=== PATIENT | male | born 1985 | race African-American/Black ===

== ENCOUNTER 2019-06-29 08:28 | Inpatient (IN) ==
--- NOTE | 2019-06-29 09:10 | Diag Imaging Result Doc PS360 ---
EXAM: CHEST-1 VIEW 06/29/2019 HISTORY: bilat LE edema TECHNIQUE: AP portable upright chest at 0854 COMMENT: The costophrenic angles are not included on the film. There is some questionable atelectasis over the left base. Otherwise lungs are clear and the heart and primary vascularity are within normal limits. IMPRESSION: Possible left lower lobe atelectasis. Electronically signed by Harry Valdivia 06/29/2019 9:07 AM
--- NOTE | 2019-06-29 09:12 | PROVIDER DOCUMENTATION ---
HPI-General Adult - General Chief Complaint: Edema Stated Complaint: fluid build up Time Seen by Provider: 06/29/19 08:43 Source: patient, old records Allergies/Adverse Reactions: Patient Allergies Allergy/AdvReac Type Severity Reaction Status Date / Time No Known Allergies Allergy Verified 06/29/19 08:59 Home Medications: Home Medication List Medication Instructions Recorded Confirmed Last Taken Type Hydrochlorothiazide 1 tab PO DAILY 06/29/19 06/29/19 06/28/19 History Losartan [Cozaar] 100 mg PO DAILY 06/29/19 06/29/19 06/28/19 History Lovastatin 1 tab PO HS 06/29/19 06/29/19 Unknown History - History of Present Illness -Gen Adult Nature of Presenting Problems: pt w. hx of HBP on Losartan, lipid disorder on (? statin), notes 59 lb weight gain in past month. he denies known OHD/liver/kidney disease. his urine volume is normal per his judgement. he has occas orthopnea ("1-2 X monthly) but denies PND and generally sleeps on 2 pillows. he denies known venous insuff / DVT. he weights 378 today. Review of Systems - Adult - REVIEW OF SYSTEMS - ADULT Constitutional: reports: no symptoms reported Eyes: reports: no symptoms reported Ears, Nose, Mouth & Throat: reports: no symptoms reported Cardiovascular: reports: see HPI, edema Respiratory: reports: no symptoms reported Gastrointestinal: reports: no symptoms reported Genitourinary: reports: no symptoms reported Musculoskeletal: reports: see HPI Integumentary: reports: no symptoms reported Neurological: reports: no symptoms reported Psychiatric: reports: no symptoms reported Endocrine: reports: no symptoms reported Hematologic/Lymphatic: reports: no symptoms reported Allergic/Immunologic: reports: no symptoms reported All Other Systems: Reviewed and Negative Past History - Adult - PAST MEDICAL HISTORY-ADULT Review of Records: reports: Old Records Reviewed Physical Exam-General - PHYSICAL EXAM-ADULT Initial Vital Signs Reviewed: Yes - CONSTITUTIONAL General Appearance: appears well, alert, no apparent distress - EYES Eyes: pink conjunctivae. negative: scleral icterus - HEAD, EARS, NOSE, MOUTH & THROAT HENMT: normocephalic/atraumatic, moist mucous membranes - NECK Neck: full range of motion, other (no NVD). negative: lymphadenopathy, trachial deviation, thyromegaly - RESPIRATORY Respiratory: lungs clear - CARDIOVASCULAR Cardiovascular: regular rate, rhythm - GASTROINTESTINAL (ABDOMEN) Abdominal Exam: normal bowel sounds, non tender, soft, other (massively obese) - LYMPHATIC Lymphatic: no adenopathy - MUSCULOSKELETAL Back Exam: no CVA tenderness Extremity: normal range of motion, swelling. 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 as tested, grossly normal, no motor/sensory deficits - PSYCHIATRIC Psych/Mental Status: normal mood/affect, normal thought content Progress - PLAN OF CARE/RESULTS Progress/Plan/Lab Results: Vital Signs - 8 hr 06/29/19 08:36 Temperature 98.9 F Pulse Rate 95 H Respiratory Rate 18 Blood Pressure 136/88 O2 Sat by Pulse Oximetry 99 Orders Category Date Time Status Nursing- Obtain EKG ONCE Care 06/29/19 08:44 Active CHEST-1 VIEW [RAD] Stat Exams 06/29/19 08:44 Taken CBC WITH DIFF [HEME] Stat Lab 06/29/19 08:44 Uncollected COMPREHENSIVE METABOLIC PANEL [CHEM] Stat Lab 06/29/19 08:44 Uncollected D-DIMER [COAG] Stat Lab 06/29/19 08:46 Uncollected PRO B-NATRIURETIC PEPTIDE Stat Lab 06/29/19 08:44 Uncollected URINALYSIS W/POSS RFLX CULT [URINALYSIS] Stat Lab 06/29/19 08:44 Uncollected EKG [EKG] Stat Ther 06/29/19 08:44 Ordered Result Diagrams: 06/29/19 09:23 06/29/19 09:23 - REASSESSMENT Reassessment #1 Time Reassessed: 11:12 Status: unchanged - EKG 1 Time of EKG reading by physician:: 09:10 EKG Interpretation (*Must complete 3 of following elements*): Normal Rate: 93 Rhythm: NSR [place]: normal QRS: normal ST Wave: normal Departure - Departure Date of Disposition Decision: 06/29/19 Time of Disposition Decision: 11:40 DIAGNOSIS: ALICE (acute kidney injury), Anasarca associated with disorder of kidney Disposition: ADMITTED INPATIENT 09 Certified Medical Emergency: Emergent Condition: Stable - Critical Care Note This patient required my direct & personal management of CC.: No Attestation - Physician/ NAVNEET Attestation The physician spent face to face time with patient:: Yes Advanced Practice Provider documentation review:: Supervising physician onsite and consulted in the evaluation and care of this patient. The physician did have a face to face encounter with the patient.
[2019-06-29 09:32] LABS: BASO# 0.02 X1000 (0.0-0.2); BASO% 0.3 % (0.0-0.8); EOS# 0.16 X1000 (0.0-0.7); EOS% 2.3 % (0.0-10.0); HEMATOCRIT 41.4 % (42.0-52.0); HEMOGLOBIN 13.4 g/dL (14.0-18.0); LYMPH# 1.48 X1000 (1.2-3.4); LYMPH% 20.8 % (20.5-51.1); MCH 28.4 PG (27-31); MCHC 32.4 g/dL (33-37); MCV 87.7 FL (81-99); MONO# 0.49 X1000 (0.11-0.59); MONO% 6.9 % (1.7-9.3); MPV 9.7 FL (7.4-10.4); NEUT# 4.95 X1000 (1.4-6.5); NEUT% 69.7 % (42.2-75.2); PLT 288 X1000 (130-400); RBC 4.72 XMIL (4.7-6.1); RDW 13.4 % (11.5-14.5)
--- NOTE | 2019-06-29 10:00 | EKG Report ---
Test Performed on : 06/29/2019 09:08:51 AM Test Reason : edema Blood Pressure : / mmHG Vent. Rate : 093 BPM Atrial Rate : 093 BPM P-R Int : 134 ms QRS Dur : 090 ms QT Int : 352 ms P-R-T Axes : 029 011 005 degrees QTc Int : 437 ms Normal sinus rhythm. T wave abnormality, consider lateral ischemia Abnormal ECG No previous ECGs available Unconfirmed Result
[2019-06-29 10:01] LABS: AGAP 8; ALB/GLOB RATIO 0.6; ALBUMIN 1.8 g/dL (3.5-5.0); ALKALINE PHOSPHATASE 34 U/L (32-122); BUN 19 mg/dL (8-22); CALCIUM 7.6 mg/dL (8.8-10.2); CHLORIDE 107 mmol/L (98-107); COSMO 284; CREATININE 3.4 mg/dL (0.7-1.2); ESTIMATED GFR 25; GLUCOSE 100 mg/dL (70-104); GOT 17 U/L (10-34); GPT 10 U/L (10-44); POTASSIUM 3.5 mmol/L (3.5-5.1); SODIUM 141 mmol/L (136-145); TCO2 26 mmol/L (25-35); TOTAL PROTEIN 4.6 g/dL (6.3-8.3)
[2019-06-29 10:03] LABS: TOTAL BILIRUBIN < 0.15 mg/dL (0.20-1.00)
[2019-06-29 12:04] LABS: URINE SOURCE CLEAN CATCH
[2019-06-29] MEDS ORDERED: ZOFRAN IV PRN (12:05)
[2019-06-29] MEDS ORDERED: TYLENOL PO PRN (12:05)
[2019-06-29 12:11] LABS: BILIRUBIN URINE NEGATIVE (NEGATIVE); BLOOD URINE MODERATE (NEGATIVE); COLOR YELLOW; GLUCOSE URINE TRACE mg/dL (NEGATIVE); KETONE URINE NEGATIVE (NEGATIVE); LEUKOCYTES URINE NEGATIVE (NEGATIVE); NITRITE URINE NEGATIVE (NEGATIVE); PH URINE 7.5; PROTEIN URINE >600 mg/dL (NEGATIVE); SP GRAVITY URINE 1.019; TURBIDITY URINE CLEAR (CLEAR); UR EPITHELIAL CELLS <10 /HPF (<10); URINE BACTERIA NEGATIVE /HPF; URINE RBC 20-40 /HPF (<10); UROBILINOGEN URINE NORMAL (NORMAL)
[2019-06-29 13:18] LABS: UR AMPHETAMINES QUAL NONE DETECTED (NONE DETECT); UR BARBITUATES QUAL NONE DETECTED (NONE DETECT); UR BENZODIAZEPIN QUAL NONE DETECTED (NONE DETECT); UR CANNABINOIDS QUAL NONE DETECTED (NONE DETECT); UR COCAINE QUAL NONE DETECTED (NONE DETECT); UR METHADONE QUAL NONE DETECTED (NONE DETECT); UR OPIATES QUAL NONE DETECTED (NONE DETECT); UR OXYCODONE QUAL NONE DETECTED (NONE DETECT); UR PCP QUAL NONE DETECTED (NONE DETECT)
[2019-06-29 13:19] LABS: UR CREAT RANDOM 103.3 mg/dL (14-26)
--- NOTE | 2019-06-29 13:57 | HISTORY AND PHYSICAL ---
PRIMARY CARE PROVIDER: Dr. Luna. CHIEF COMPLAINT: Swelling in the abdomen and in the lower extremities. HISTORY OF PRESENT ILLNESS: Mr. Mateus Mitchell is a 34-year-old male with a medical history of morbid obesity. BMI is over 40. He also has a history of hypertension, hyperlipidemia. States for at least 1 month now he has had more swelling in the abdomen and the lower extremities that is pitting. He admits to having at least a 5+ pound weight gain in the last 2 weeks. He 2 weeks ago went to his primary care provider, Dr. Luna, who increased his hydrochlorothiazide from 12.5 to 25 mg and his losartan from 25 to 100 mg and since that time he has had more swelling. He denies any changes in his urinary output and states that the swelling is so much more in his abdomen that he is actually having tenderness around the bellybutton area. He does have pretty significant anasarca at least 4+ pitting edema in the abdomen and legs. He has a lab value of 3.4 on his creatinine. However, the BUN is stable and it looks like in 2016 he had a normal creatinine, so he definitely has acute kidney injury. He has a significant amount of protein in the urine. He may have possible nephrotic syndrome. He also stated that yesterday he had so much swelling he actually had to cut his pants off. FAMILY HISTORY: Congestive heart failure so we are going to rule out congestive heart failure along with acute kidney injury that he has. PAST MEDICAL HISTORY: 1. Hypertension. 2. Hyperlipidemia. 3. Morbid obesity, current BMI is 47.2. SURGICAL HISTORY: None. SOCIAL HISTORY: Quit smoking in 2015. Started at the age of 20 and would smoke 3 Black and Mild's today. Denies alcohol or illicit drug use. 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 SOCIAL HISTORY: Not ; no children. FAMILY HISTORY: Mother had congestive heart failure and 20 years ago. Father unknown. ALLERGIES: No known drug allergies. HOME MEDICATIONS: 1. Cozaar/losartan 100 mg p.o. daily. 2. Hydrochlorothiazide 25 mg p.o. daily. 3. Lovastatin 40 mg p.o. nightly. REVIEW OF SYSTEMS: Fourteen point review of systems are complete and all were negative except for those mentioned above HPI. He denies chest pain, shortness of breath. He denies fever, cough. PHYSICAL EXAMINATION: VITAL SIGNS: Temperature 98.9 degrees, heart rate 78, respiratory rate 16, blood pressure 150/83, O2 saturation 99% on room air. GENERAL: Mr. Mateus Mitchell is a 34-year-old male. He is in no acute distress. He is able to answer questions appropriately. HEENT: Atraumatic, normocephalic. Pupils equal, round, reactive to light. Extraocular movements intact. Mucous membranes moist. NECK: Trachea midline. CARDIOVASCULAR: S1, S2. Regular rate and rhythm. No rubs, gallops, murmurs, 4+ lower extremity pitting edema, 4+ abdominal pitting edema, +2 dorsalis and radial pulses. Unable to assess for JVD given body habitus. Negative for carotid bruits. PULMONARY: Clear to auscultation, bilateral breath sounds. No accessory muscle use or work of breathing noted. GASTROINTESTINAL: Abdomen soft, nontender, distended, but mostly distended because of the fluid buildup. Positive bowel sounds x4. EXTREMITIES: Moves all extremities equally with full range of motion. NEUROLOGIC: A and O x3. Follows commands. Sensory is intact. SKIN: Warm, dry, intact. LABORATORY DATA: White blood cells 7000, hemoglobin 13, hematocrit 41, platelet count 288,000. D- dimer 0.52. Sodium 141, potassium 3.5, BUN 19, creatinine 3.4, glucose 100, calcium 7.6, bilirubin less than 0.15, AST 17, ALT 10, proBNP 33. Albumin is 1.8. Urine protein greater than 600. Urine blood moderate, urine white blood cells 10 to 20, urine red blood cells 20 to 40, but there is negative leukocytes and negative bacteria. Micro: Urine culture pending. IMAGING: Chest x-ray, maybe some slight left lower lobe atelectasis. EKG: Normal sinus rhythm, rate of 93, QTc 437. ASSESSMENT AND PLAN: 1. Anasarca. Could be related to a nephrotic syndrome. He has protein in the urine. He has elevated creatinine. Could also be heart related. We have got to rule out congestive heart failure as well. 2. Acute kidney injury, possible nephrotic syndrome. He has been on losartan and hydrochlorothiazide, which will stop. He has low albumin, elevated protein in the urine. Elevated creatinine so he has significant edema everywhere. 3. Hypertension. We will hold off on his hydrochlorothiazide and his losartan for now, we may have to add something if it goes up too much higher. He is at 150 right now, systolic. 4. Hyperlipidemia. We will resume his statin. 5. Deep venous thrombosis prophylaxis, Lovenox. Dictated by ABRAHAM Atkins for Ryan Shipman MD cc: ABRAHAM Atkins MD
--- NOTE | 2019-06-29 16:19 | Diag Imaging Result Doc PS360 ---
EXAM: US RENAL 2 (RETROPER) COMPLETE 06/29/2019 HISTORY: debra; anasarca TECHNIQUE: Renal ultrasound COMMENT: The study is suboptimal technically due to the patient's body habitus. The urinary bladder is unremarkable in appearance. There is no evidence of hydronephrosis. The right kidney is 12.5 x 5.5 x 5.4 cm the left is 14.6 x 6.5 x 5.9 cm. IMPRESSION: No evidence of obstructive uropathy. Electronically signed by Harry Valdivia 06/29/2019 4:16 PM
--- NOTE | 2019-06-29 16:26 | ECHO REPORT ---
ORDER DATE: 06/29/2019 INTERPRETING PHYSICIAN: Dr. Zepeda REQUESTING PHYSICIAN: Hospitalist Service CLINICAL INDICATIONS: This is a 34-year-old male with shortness of breath, swelling. M-MODE MEASUREMENTS: Right ventricle: cm. Left ventricle end diastole: 4.1 cm. Left ventricle end systole: 3.1 cm. Posterior wall: 1.2 cm. Interventricular septum: 1.2 cm. Left atrium: 3.9 cm. Aortic root: 3.0 cm. SUMMARY OF 2-DIMENSIONAL IMAGIN. Left ventricular function appears to be grossly normal. Ejection fraction estimated at 55% to 60%. 2. Optison was added to improve visualization of endocardium. 3. Mitral valve looks normal. Color flow mapping is unremarkable. 4. Pulse wave Doppler of mitral inflow is normal. 5. Tissue Doppler of septal and lateral mitral annulus averages 7 cm. 6. Pulmonic valve is grossly normal. 7. Tricuspid valve is unremarkable. 8. Aortic valve looks normal. Color flow mapping is unremarkable. 9. There is no pericardial effusion, mas or thrombus. 10.Right sided chambers were suboptimally visualized. 11.There is no evidence of masses or thrombus. Clinical correlation is recommended. cc: MD Natividad Lynch CRNP
[2019-06-29] MEDS ORDERED: ALBUMIN 25% IV ONE (17:53)
--- NOTE | 2019-06-29 18:45 | HISTORY AND PHYSICAL ---
ADDENDUM: HISTORY OF PRESENT ILLNESS: This is a 34-year-old male who is complaining of increasing swelling and possibly a little bit of shortness of breath, but mostly swelling of abdomen and lower extremities for the last month. He has had a 5-pound weight gain in the last couple weeks. PCP, Dr. Luna, increased his hydrochlorothiazide to 25 and went from 25 to 100 on the losartan. His urine output has not changed, but he does describe frothy urine, and that is also for about a month. Workup in the ER today showed a 3.4 creatinine. It was completely isolated. Potassium is okay. Protein if anything is low. Albumin very low. Urine protein though greater than 600. PHYSICAL EXAMINATION: On exam he has got at least 2 to 3+ pitting edema up to knees. I did not appreciate rales. He has got edema in his abdominal wall. He even has maybe a little bit of periorbital edema or at least a little bit on the left side. PROBLEM LIST: Anasarca in the setting of hypoalbuminemia very concerning for a nephrotic syndrome, unknown primary type. At this point he has got kidney failure which we do not know if it is acute on chronic. Workup in progress. If his kidney function is not much improved, I will get Nephrology to evaluate him. Reluctant really to give him fluids at this point since he appears to be overloaded, but we may give him some albumin and see how he does. Collecting 24- hour urine. He may end up needing renal biopsy if he does have nephrotic-range proteinuria. This certainly could be hypertensive. His blood pressure is not controlled although it is not through the roof. His blood sugar was okay. He does not have features of diabetes at this point. ProBNP is normal which would argue against congestive heart failure. Renal ultrasound will be obtained. Echocardiogram. Possibly evaluation of his liver although his liver enzymes are within normal limits. So, again I think this is a primary nephrotic syndrome, possibly focal segmented glomerulosclerosis or membranous glomerular nephropathy. We will not be able to differentiate that probably less of a biopsy, but we will get Nephrology opinion tomorrow based on the accumulated data. This is a [id number] encounter note with Natividadanselmo Kinsey. cc: Ryan Shipman MD
[2019-06-29] MEDS: MEVACOR PO SCH ×2 (19:58→20:03)
[2019-06-30 06:12] LABS: BASO# 0.02 X1000 (0.0-0.2); BASO% 0.3 % (0.0-0.8); EOS# 0.19 X1000 (0.0-0.7); EOS% 3.1 % (0.0-10.0); HEMATOCRIT 40.7 % (42.0-52.0); HEMOGLOBIN 12.9 g/dL (14.0-18.0); LYMPH# 1.58 X1000 (1.2-3.4); LYMPH% 25.4 % (20.5-51.1); MCHC 31.7 g/dL (33-37); MCV 88.3 FL (81-99); MONO# 0.69 X1000 (0.11-0.59); MONO% 11.1 % (1.7-9.3); MPV 9.5 FL (7.4-10.4); NEUT# 3.74 X1000 (1.4-6.5); NEUT% 60.1 % (42.2-75.2); PLT 265 X1000 (130-400); RBC 4.61 XMIL (4.7-6.1); RDW 13.4 % (11.5-14.5); WBC 6.22 X1000 (4.8-10.8)
[2019-06-30 06:42] LABS: ALB/GLOB RATIO 0.5; ALBUMIN 1.6 g/dL (3.5-5.0); CALCIUM 8.1 mg/dL (8.8-10.2); CREATININE 3.1 mg/dL (0.7-1.2); POTASSIUM 3.5 mmol/L (3.5-5.1); TOTAL BILIRUBIN 0.18 mg/dL (0.20-1.00); TOTAL PROTEIN 4.6 g/dL (6.3-8.3)
[2019-06-30] MEDS: LOVENOX SUBQ SCH (08:04)
[2019-06-30 16:23] LABS: UR PROTEIN > 600.0 mg/dL
[2019-06-30 16:24] LABS: TOTAL VOLUME 3050 mLs
--- NOTE | 2019-06-30 18:13 | PROGRESS NOTE ---
DATE: 06/30/2019 SUBJECTIVE: The patient has no major complaints. OBJECTIVE: vital signs: Blood pressure is 151/99, heart rate of 77, respiratory rate of 18, temperature 98.3 degrees. Cardiovascular: Regular rate and rhythm. Pulmonary: Bilateral breath sounds. Clear to auscultation. Gastrointestinal: Soft, nontender, nondistended. Bowel sounds are positive. LABORATORIES: White count 6, hemoglobin and hematocrit 12 and 40, platelets 265,000. Creatinine 3.1. PROBLEM: Anasarca, most likely due to nephrotic syndrome. His 24-hour urine says that it is not reportable, so I am confused. Does that mean he does not have any protein? In any case, I am going to get a renal consult because I do think he has got a primary nephrotic syndrome. The rest of his workup has been negative. Echo was negative for heart failure. His renal ultrasound was really unremarkable. His urine electrolytes were nondiagnostic. This could be an acute injury in the setting of a diuretic and ARB on burgeoning chronic renal failure at early stage, but I think this may be a primary nephrotic syndrome. We will get a Nephrology opinion and follow. Continue to monitor his electrolytes. cc: Ryan Shipman MD
[2019-06-30] MEDS: MEVACOR PO SCH (20:24)
[2019-07-01 06:34] LABS: BASO# 0.02 X1000 (0.0-0.2); BASO% 0.3 % (0.0-0.8); EOS# 0.23 X1000 (0.0-0.7); EOS% 3.6 % (0.0-10.0); HEMATOCRIT 42.3 % (42.0-52.0); HEMOGLOBIN 13.4 g/dL (14.0-18.0); LYMPH# 1.79 X1000 (1.2-3.4); MCH 27.9 PG (27-31); MCHC 31.7 g/dL (33-37); MCV 88.1 FL (81-99); MONO# 0.58 X1000 (0.11-0.59); MONO% 9.1 % (1.7-9.3); MPV 9.7 FL (7.4-10.4); NEUT# 3.77 X1000 (1.4-6.5); PLT 284 X1000 (130-400); RDW 13.3 % (11.5-14.5); WBC 6.39 X1000 (4.8-10.8)
[2019-07-01 07:01] LABS: ALB/GLOB RATIO 0.6; ALBUMIN 1.8 g/dL (3.5-5.0); CALCIUM 8.1 mg/dL (8.8-10.2); MAGNESIUM 2.1 mg/dL (1.5-2.7); POTASSIUM 3.6 mmol/L (3.5-5.1); TOTAL BILIRUBIN 0.2 mg/dL (0.20-1.00); TOTAL PROTEIN 4.8 g/dL (6.3-8.3)
[2019-07-01] MEDS: LOVENOX SUBQ SCH (11:43)
[2019-07-01 17:22] VITALS: BP 124/77
--- NOTE | 2019-07-01 18:45 | DISCHARGE SUMMARY ---
ADMISSION DATE: 06/29/2019 DISCHARGE DATE: 07/01/2019 DISCHARGE DIAGNOSES: 1. Nephrotic syndrome. 2. Acute on chronic renal failure stage 4. 3. Hypoalbuminemia. 4. Hypertension. Briefly, this is a 34-year-old male presenting with swelling in his extremities, 5 pound weight gain. He had pitting edema. His workup revealed that he had a creatinine of 3.4 and significant proteinuria greater than 600. His 24 hour urine protein could not be calculated because there was too much protein. They collected >3 liters of total urine volume, and his urine protein was greater than 600 mg/dl. Comparing that to his urine creatinine, the protein-creatinine ratio was 5.9 g of proteinuria which is consistent with nephrotic syndrome. His blood pressure stabilized. Heart rate stabilized. He still had some lower extremity swelling. I discussed the case with Dr. Babb. We will make him follow up with him soon. We will continue Cozaar 100 daily, lovastatin 40 daily, Lasix 40 daily, and follow up with Dr. Babb next week and consider renal biopsy because he may need to evaluate for different types of nephropathy related to nephrotic syndrome. His CRP was normal, 3.8. ProBNP was normal, 33. His renal ultrasound did not show obstruction. Kidneys looked normal. His echocardiogram showed an EF of 55% and no major valvular abnormalities. I really do think this is a pure renal issue, possible minimal change disease, FSGS. cc: Ryan Shipman MD MTDD
--- NOTE | 2019-07-02 07:43 | EKG Report ---
Test Performed on : 06/30/2019 06:28:02 AM Test Reason : chest pain Blood Pressure : / mmHG Vent. Rate : 071 BPM Atrial Rate : 071 BPM P-R Int : 140 ms QRS Dur : 092 ms QT Int : 416 ms P-R-T Axes : 041 023 017 degrees QTc Int : 452 ms Sinus rhythm. with marked sinus arrhythmia. Otherwise normal ECG When compared with ECG of 29-JUN-2019 09:08, (Unconfirmed) No significant change was found Confirmed by Alma BA, Everardo Johnson ([id number]) on 07/02/2019 4:21:28 PM
--- NOTE | 2019-07-02 13:21 | Extremity Venous Study ---
PROCEDURE NAME: Venous U/S Bilateral Legs - 06/29/2019 BIOINFORMATICIAN: Kae. REQUESTING PHYSICIAN: Dr. Kinsey. INDICATIONS: Edema of the legs. The deep and superficial veins of bilateral lower extremities were visualized along their course. The vessels were compressible with forward flow, and no evidence intraluminal thrombus. There was some reflux noted with Valsalva in the right common femoral vein. There was subcutaneous edema noted in the bilateral soft tissues. IMPRESSION: No deep or superficial venous thrombosis noted. cc: MD Natividad Gold CRNP
== END 2019-07-01 20:46 | disposition home or self-care (01) | DRG 683 ==
LOC: ED 08:28 → 4N 08:29
PROVIDERS: ATTEND Internal Medicine